=== PATIENT | female | born 1950 | race Caucasian/White ===

== ENCOUNTER 2019-02-09 11:00 | Inpatient (IN) | payer MEDICARE ==
--- NOTE | 2019-01-30 13:55 | HP ---
HISTORY AND PHYSICAL: DATE OF ADMISSION/SURGERY: 02/09/19 DATE OF OFFICE VISIT: 01/27/19 SURGEON: La Huitron MD* (dictated by MARIA ELENA Vogt). PROCEDURE: Right total knee arthroplasty. CHIEF COMPLAINT: Right knee pain. HISTORY OF PRESENT ILLNESS: Ms. Infante is a 68-year-old female with end-stage osteoarthritis of the right knee. She failed conservative treatment and elected to proceed with a right total knee arthroplasty. PAST MEDICAL HISTORY: RA, history of breast cancer, hypertension, COPD, high cholesterol, and diabetes. PAST SURGICAL HISTORY: Lumpectomy, right thumb nerve repair, and tonsillectomy. CURRENT MEDICATIONS: 1. Lisinopril 10 mg daily. 2. Lipitor 10 mg q.h.s. 3. Multivitamin. 4. Glucosamine and chondroitin. 5. Metformin 500 mg once a day. 6. Ibuprofen 600 mg twice a day. 7. Anastrozole 1 mg daily. 8. Vitamin D3. 9. Tylenol as needed. 10. Diltiazem 120 mg daily. 11. Calcium citrate. 12. Spiriva inhaler. 13. Hydroxychloroquine 200 mg 2 tabs twice a day. 14. Leucovorin calcium 5 mg weekly after methotrexate. 15. Methotrexate 2.5 mg 4 tabs once a week. 16. Sulfasalazine 500 mg twice a day. 17. Folic acid. ALLERGIES: To LEVAQUIN and TETRACYCLINE. FAMILY HISTORY: Diabetes, coronary artery disease, and RA. SOCIAL HISTORY: She is a 68-year-old female. She lives with her . She does not smoke or use drugs. REVIEW OF SYSTEMS: A complete 14-point review of systems was reviewed with the patient. It was positive for diabetes, COPD, and shortness of breath. She denies history of DVT, PE, hepatitis, HIV, or anesthesia problems. PHYSICAL EXAMINATION GENERAL: She is well developed, well nourished, in no acute distress. VITAL SIGNS: She stands 61 inches tall, weighs 195 pounds. Her blood pressure is 137/67, her heart rate is 68. HEENT: Normocephalic, atraumatic. NECK: Supple. No palpable lymph nodes. PULMONARY: Lungs are clear to auscultation bilaterally. CARDIO: Regular rate and rhythm. Strong S1, S2. ABDOMEN: Soft, nontender, and nondistended. NEUROLOGIC: She is alert and oriented x3. MUSCULOSKELETAL: Right lower extremity: Skin is intact. There are no open wounds or abrasions. There is a moderate effusion of the right knee joint. She has some tenderness over the medial and lateral joint line. Range of motion is 5 to 125 degrees of flexion. She has 2+ dorsalis pedis pulse and intact sensation. Her lower extremity muscle group strengths were intact at 5/ 5. ASSESSMENT AND PLAN: Ms. Infante is a 68-year-old female with end-stage osteoarthritis of the right knee. She has failed conservative treatment and elected to proceed with a right total knee arthroplasty. The surgery is scheduled for 02/09/[address] Huitron discussed the risks and benefits of the surgery at today's visit and all of her questions were answered. She will follow up with Dr. Huitron 2 weeks after the surgery. MARIA ELENA VOGT [id number]/[facility] #: [id number] ELVIN
[~2019-02-09 11:00] MED LIST: Buffered Lidocaine 1% SYRIN* 1 ML/SYRINGE INTRADERM ONE; Lactated Ringers 1000 ML Bag* 1,000 ML IV SCH; Tranexamic Acid 1,000 MG in NS 0.9% 50 ML* (outpatient use) IV SCH
[2019-02-09] MEDS ORDERED: Midazolam* 1 MG/ML 2 ML VIAL (2 MG) ONE (12:40)
[2019-02-09] MEDS ORDERED: fentaNYL* 50 MCG/ML 2 ML VIAL (100 MCG VIAL) ONE ×3 (12:40→18:46)
[2019-02-09] MEDS ORDERED: ceFAZolin 2 GM PREMIX in ORs 2 GM/50 ML BAG IVPB ONE (12:55)
[2019-02-09] MEDS ORDERED: ROPIVACAINE 5 MG/ML 30 ML BTL (0.5%) ONE (13:37)
[2019-02-09] MEDS ORDERED: Bupivacaine 0.5%* 50 ML VIAL ONE (13:46)
[2019-02-09] MEDS ORDERED: Acetaminophen TAB* 325 MG PO PRN (15:56)
[2019-02-09] MEDS ORDERED: Naloxone* 0.4 MG/ML 1 ML VIAL IV PRN (15:56)
[2019-02-09] MEDS ORDERED: Propofol* 10 MG/ML 20 ML BTL ONE (16:00)
[2019-02-09] MEDS ORDERED: Bupivacaine 0.5% SDV PF* 30ML VIAL ONE (16:01)
[2019-02-09] MEDS ORDERED: Bisacodyl SUPP* 10 MG SUPP PR PRN (16:53)
[2019-02-09] MEDS ORDERED: Magnesium Hydroxide LIQ* 30 ML UDC PO PRN (16:53)
[2019-02-09] MEDS ORDERED: Morphine INJ* 2 MG/ML 1 ML SYRINGE (TWO MG - NEW SYRINGE VERSION) IV PRN (16:53)
[2019-02-09] MEDS ORDERED: diPHENhydraMINE PO* 25 MG PO PRN (16:53)
[2019-02-09] MEDS ORDERED: traMADol TAB* 50 MG PO PRN (16:53)
[2019-02-09] MEDS ORDERED: diPHENhydraMINE IV* 50 MG/ML 1 ml VIAL (BENADRYL) IV PRN (16:53)
--- NOTE | 2019-02-09 17:08 | OP ---
Operative Report - Blank - Operative Report Date of Operation: 02/09/19 Note: JOSY REYES 1950 Date of Surgery: 02/09/19 La Huitron MD Policy Issue Clerk: Mitali ARREDONDO did help throughout the procedure with preparation of the knee, wound retraction, manipulation of the knee, and wound closure. Anesthesiologist: Dr. Watson Anesthesia Type: Spinal Preoperative Diagnosis: Right severe degenerative osteoarthritis of the knee Postoperative Diagnosis: As above Procedure Performed: Right Total Knee Arthroplasty Tourniquet time: 45 minutes Complications: None Specimen: Bone and cartilage from the right knee joint sent to pathology. Hardware Used: Cemented [employer]ell [employer]hew total knee hardware was used - For the femur a size 4 narrow right legion posterior stabilized femoral component, for the tibia a size 3 right jairo II tibial baseplate, for the insert a size 9 mm 3-4 posterior stabilized articular polyethylene insert, and for the patella a size 29 3-peg all poly patella. Brief History/Indication: JOSY REYES was known in clinic and had a history of severe right knee pain and swelling. She failed conservative treatment with anti-inflammatories, pain pills, intra-articular injections and physical therapy. She elected to undergo right total knee arthroplasty due to continued pain and decreased quality of life. Radiographs showed severe end stage osteoarthritis of the knee with bone on bone contact. Informed consent was obtained from the patient. She understood the risks of surgery included but were not limited to: bleeding, infection, damage to nearby structures, intraoperative fracture, nerve palsy, failure of the hardware, early loosening, knee stiffness or loss of motion, anesthesia complications, stroke, heart attack , blood clot and . She wished to proceed. Intra-Operative Findings: Intraoperatively the patient was noted to have severe loss of cartilage in all 3 compartments of the knee. Description of the Procedure: JOSY REYES was identified in the preanesthesia unit. Her right knee was marked as the correct operative side. Informed consent was signed and placed in the chart. The patient was taken to the operating room and placed under anesthesia without complication. A saxena catheter was placed. A tourniquet was placed on the right thigh. The right lower extremity was prepped and draped in the usual sterile fashion. Preoperative time-out was made to correctly identify the patient, side and site. Appropriate intraoperative antibiotics were given within one hour of incision. Tourniquet was inflated. A midline incision was made and carried sharply down to the extensor mechanism. A new 10 blade was used to make a standard medial parapatellar arthrotomy. The patella was subluxed laterally. Electrocautery was used to dissect soft tissue off the superomedial tibia to the midsagittal plane. The knee was flexed up. The anterior horn of the lateral meniscus and the ACL were sharply incised. A drill was used to enter the distal femur. The intramedullary distal femoral cutting guide was pinned on the distal femur. The oscillating saw was used to make the distal femoral cut. The external rotation guide was pinned on the distal femur and the distal femur was sized to a size 4. The size 4 multi-cutting jig was pinned on the distal femur. The oscillating saw was used to make the appropriate 4 chamfer cuts. Next the PCL was completely released. The extramedullary tibial cutting guide was pinned on the proximal tibia and the oscillating saw was used to make the proximal tibial cut perpendicular to the mechanical axis of the tibia. The bone was carefully removed. The knee was brought out into full extension. The spacer block was placed and had excellent fit with the knee in full extension. The medial and lateral ligaments were well balanced. The flexion and extension gaps were well balanced. The knee was flexed up. Lamina spreader box operator was placed both medially and laterally. Any remaining meniscus was removed with electrocautery. Curved osteotome was used to remove any posterior osteophytes. The tibial tray and drop bindu were placed and confirmed a satisfactory tibial cut. The size 4 right narrow femoral trial was impacted onto the distal femur. This trial had excellent fit and stability. The box for the posterior stabilized implant was prepared using a box cut osteotome and a reamer. Next a tibial tray trial and 9 mm insert trial was placed. The knee was taken through a range of motion and had full extension to 130 degrees of flexion. Patellofemoral tracking was satisfactory. The patella was inverted and sized to a size 29. Three peg holes were drilled through the size 29 drill guide. The trial patella was placed and the knee was taken through a range of motion. There was satisfactory patellofemoral tracking. All trials were removed. The tibia was subluxed anteriorly and sized to a size 3. The proximal tibial was prepared with a size 3 keel punch. All bony cut surfaces were irrigated with sterile saline and dried. Final implants were cemented into place starting with the tibia, followed by the femur, and last the patella. A 9 mm insert trial was placed and the knee was brought into full extension. Tourniquet was turned down and the knee was copiously irrigated with sterile saline. Electrocautery was used to obtain meticulous hemostasis. Once the cement had fully cured, the insert trial was removed. Any excess cement was removed from around the hardware and capsule. Final insert chosen was a 9 mm posterior stabilized Jairo II articular insert size 3-4. Stability of the insert was checked and noted to be stable. The extensor mechanism was closed using number 1 vicryls. The rest of the incision was closed in a layered fashion using 0 and 2-0 vicryls. The skin was closed using 3-0 nylon suture. Sterile xeroform, 4x4s and webril were used to cover the incision. Abner wrap and cold pack were used to cover the dressings. The patients anesthesia was reversed without difficulty. She was taken to the PACU in stable condition. Intended weight-bearing will be as tolerated.
[2019-02-09] MEDS ORDERED: oxyCODONE/Acetamin 5/325 MG* TAB PO PRN (17:09)
--- NOTE | 2019-02-09 17:33 | PN ---
Progress Note - Progress Note Date of Service: 02/09/19 Note: Patient seen in PACU POD 0 s/p RTK arthroplasty. Alert, Pain managed, +DF right ankle, sensation intact distal extremity.
[2019-02-09] MEDS ORDERED: oxyCODONE/Acetamin 5/325 MG* TAB ONE ×2 (17:35→19:29)
[2019-02-09] MEDS: oxyCODONE/Acetamin 5/325 MG* TAB PO PRN ×3 (17:36→22:35)
[2019-02-09] MEDS: fentaNYL* 50 MCG/ML 2 ML VIAL (100 MCG VIAL) IV PRN ×5 (17:43→19:21)
[2019-02-09] MEDS ORDERED: Ondansetron INJ* 2 MG/ML VIAL ONE (18:46)
[2019-02-09] MEDS: Ondansetron INJ* 2 MG/ML VIAL IV PRN (18:48)
[2019-02-09] MEDS ORDERED: Cyclobenzaprine TAB* 10 MG PO ONE (19:00)
[2019-02-09] MEDS: Cyclobenzaprine TAB* 10 MG PO PRN ×2 (19:04→23:52)
[2019-02-09] MEDS ORDERED: HYDROmorphone INJ1* 1 MG/ML SYRINGE ONE (19:29)
[2019-02-09] MEDS: HYDROmorphone INJ1* 1 MG/ML SYRINGE IV PRN ×2 (19:31→19:44)
[2019-02-09] MEDS: Lactated Ringers 1000 ML Bag* 1,000 ML IV SCH (20:10)
[2019-02-09] MEDS ORDERED: Lisinopril TAB* 10 MG PO SCH (21:00)
[2019-02-09] MEDS: oxyCODONE TAB* 5 MG TAB PO PRN (21:00)
[2019-02-09] MEDS: Magnesium Hydroxide LIQ* 30 ML UDC PO SCH (21:01)
[2019-02-09] MEDS ORDERED: Albuterol 2.5 MG/3 ML NEB.SOL* (0.083%) INH PRN (21:01)
[2019-02-09] MEDS: Docusate CAP* 100 MG PO SCH (21:01)
[2019-02-09] MEDS: SULFADIAZINE 500 MG PO SCH (21:02)
[2019-02-09] MEDS: Atorvastatin* 10 MG TAB PO SCH (21:02)
[2019-02-09] MEDS: Calcium Citrate TAB* 200 MG PO SCH (21:03)
[2019-02-09] MEDS: Hydroxychloroquine TAB* 200 MG PO SCH (21:03)
[2019-02-09] MEDS: Cholecalciferol TAB* 1000 UNITS PO SCH (21:03)
--- NOTE | 2019-02-09 23:24 | CONS ---
CC: Dr. Carmel Darling; Dr. La Huitron * CONSULTATION REPORT: DATE OF CONSULT: 02/09/19 PRIMARY CARE PROVIDER: Dr. Carmel Darling. MY ATTENDING WHILE IN THE HOSPITAL: Dr. Cornel Abarca. CONSULTING PROVIDER: Dr. La Huitron. REASON FOR CONSULT: Co-management of comorbid medical conditions. HISTORY OF PRESENT ILLNESS: Ms. Infante is a 68-year-old female with past medical history significant for seropositive rheumatoid arthritis, history of breast cancer, status post radiation, hypertension, COPD, and diabetes mellitus who failed outpatient therapy for right knee arthritis and they underwent right total knee arthroplasty without complications. At the time of evaluation today , she has pain 8/10 in her right knee with no radiation, no numbness or tingling. Full range of motion in her lower extremities. The patient denies chest pain, shortness of breath, or dizziness. The patient had 1 episode of vomiting associated with movement, but now feels better. The patient denies abdominal pain. The patient before coming to the hospital had no chest pain, shortness of breath, abdominal pain, diarrhea. The patient had preoperative bacteriuria which was treated with Keflex and had no symptoms at that time. The patient has not taken her methotrexate in 2 weeks nor her leucovorin. The patient denies recent fevers or chills. No recent sick contacts. No other recent changes in her medications. The patient did not take ibuprofen for 1 week. The patient did not take her lisinopril this morning. The patient took all of her other regularly scheduled medications this morning. The patient feels that after she stopped taking her methotrexate and her ibuprofen that her inflammatory arthritis symptoms have gotten worse including worsening morning stiffness and joint pain. PAST MEDICAL HISTORY: 1. Seropositive RA. 2. History of breast cancer, status post lumpectomy and radiation. 3. Hypertension. 4. COPD. 5. Hyperlipidemia. 6. Diabetes mellitus type 2. PAST SURGICAL HISTORY: 1. Lumpectomy in 2013. 2. Right thumb nerve repair. 3. Tonsillectomy. 4. Cataract surgery. 5. Right total knee arthroplasty. MEDICATIONS: 1. Lisinopril 10 mg p.o. daily. 2. Lipitor 10 mg p.o. daily. 3. Multivitamin 1 tab p.o. daily. 4. Glucosamine/chondroitin 1 tab p.o. daily. 5. Metformin 500 mg p.o. daily. 6. Ibuprofen 600 mg p.o. twice a day as needed. 7. Anastrozole 1 mg p.o. daily. 8. Vitamin D3 one tab p.o. daily. 9. Tylenol 325 mg p.o. q.4 hours as needed. 10. Diltiazem 120 mg p.o. daily. 11. Calcium citrate 1 tab p.o. daily. 12. Spiriva inhaler 2 puffs inhalation daily. 13. Hydroxychloroquine 400 mg p.o. b.i.d. 14. Leucovorin 5 mg p.o. weekly after methotrexate. 15. Methotrexate 10 mg p.o. weekly, last taken on 01/20/19. 16. Sulfasalazine 500 mg p.o. twice a day. 17. Folic acid 1 tab p.o. daily. ALLERGIES: LEVAQUIN and TETRACYCLINE. FAMILY HISTORY: The patient's mother of old age at age 96. The patient's father of heart disease at 73. The patient has had a grandmother who had diabetes and 2 aunts. SOCIAL HISTORY: The patient quit smoking in 2007. The patient drinks occasional alcohol very rarely. The patient used to work at [employer] and works approximately 2 to 3 hours a week. The patient's surrogate decision maker will be her , Koko Infante. PHYSICAL EXAM: General: The patient is a 68-year-old female who appears her stated age and sitting comfortably in the bed, in no acute distress. Vital Signs: At the time of evaluation, temperature 98.3, pulse rate 74, respiratory rate 18, oxygen saturation 95% on room air, blood pressure 154/67. HEENT: Head : Normocephalic, atraumatic. Sclerae anicteric. No conjunctival injection. Nasal mucosa moist. Oral mucosa moist. No pharyngeal erythema, discharge, or exudate. Neck: Supple, nontender. No lymphadenopathy. No carotid bruits auscultated. No JVD. Cardiac: Regular rate and rhythm. No clicks, murmurs, gallops, or rubs. Pulses are 2+ in the dorsalis pedis, posterior tibialis, and radial areas. Respiratory: Clear to auscultation bilaterally. No wheezes, rales, or rhonchi. Abdomen: Soft, nontender, and nondistended. Bowel sounds present and normoactive in all 4 quadrants. No hepatosplenomegaly. No abdominal bruits auscultated. No hepatojugular reflux. Genitourinary: No suprapubic or CVA tenderness. Skin: Right knee incision covered in bulky dressing. No other rashes. Suffers small macules on the right hand, which the patient states are chronic. DIAGNOSTIC STUDIES/LAB DATA: Preoperatively, white blood cell count 5.3, hemoglobin 12.7, platelet count 238. ESR 6. INR 0.78, PTT 28.9. Sodium 137, potassium 4.5, chloride 102, carbon dioxide 29, anion gap 6, BUN 29, creatinine 0.61, glucose 142, hemoglobin A1c of 5.7, calcium 10.0. Bilirubin 0.5, AST 17, ALT 21, alkaline phosphatase 97, protein 6.3, albumin 4.2, and globulin 2.1. TSH 1.3. Urine repeat shows yellow, clear, trace ketones, otherwise unremarkable. ASSESSMENT AND PLAN: Impression: Ms. Infante is a 68-year-old female with past medical history significant for rheumatoid arthritis, history of breast cancer, chronic obstructive pulmonary disease, and diabetes who is status post right total knee arthroplasty and is doing well except for moderate uncontrolled pain. 1. Postoperative state. Management per Orthopedics. The patient should have her hemoglobin and hematocrit trended. The patient should have pain control with opiates and muscle relaxants given the patient's inflammatory arthritis, which appears to have flared off her methotrexate. Resumption of ibuprofen when cleared by Surgery would be advised. The patient should have a bowel regimen and have her Rose removed as soon as possible. Engage in physical therapy and occupational therapy. 2. Rheumatoid arthritis. The patient will be continued on her home dose of Plaquenil and sulfasalazine. The patient is off her methotrexate and feels that her subjective symptoms of stiffness and pain have gotten worse. The patient as above should be restarted on her NSAIDs when able. 3. Chronic obstructive pulmonary disease. The patient will continue on Spiriva. The patient is not currently in exacerbation. The patient will have the albuterol nebulizer as needed. 4. Hypertension. The patient is currently normotensive, hold patient's lisinopril, resume when indicated for high blood pressure. Continue patient's diltiazem to avoid rebound tachycardia. 5. Diabetes mellitus type 2. Continue patient's metformin. The patient's blood sugar is very well controlled generally. 6. High cholesterol, continue patient's Lipitor. 7. FEN: The patient will have a regular unrestricted diet and fluids until she is able to take in adequate amount by mouth. 8. Code status: The patient would like to be a full code. 9. DVT prophylaxis with apixaban per Orthopedics. 10. Disposition per Orthopedics. TIME SPENT: Approximately 60 minutes was spent on this consultation, 30 of which was spent [id number] with the patient obtaining history and physical and discussing treatment plan. Plan was discussed with my attending, Dr. Cornel Abarca, and he is in agreement. Thank you very much for this consultation. I will continue to follow along with you. MARIA ELENA DILLON [id number]/[facility] #: [id number]
[2019-02-09] MEDS: Acetaminophen TAB* 325 MG PO SCH (23:29)
[2019-02-09] MEDS: ceFAZolin 1 GM ADVAN(*) 1 GM in NS 0.9% 50 ML* 50 ML IVPB SCH (23:32)
[2019-02-10] MEDS: oxyCODONE TAB* 5 MG TAB PO PRN ×3 (01:10→11:47)
[2019-02-10] MEDS: oxyCODONE/Acetamin 5/325 MG* TAB PO PRN ×4 (03:10→19:30)
[2019-02-10] MEDS: Acetaminophen TAB* 325 MG PO SCH ×3 (05:01→22:31)
[2019-02-10] MEDS: Lactated Ringers 1000 ML Bag* 1,000 ML IV SCH (06:12)
[2019-02-10 06:27] LABS: Hematocrit 35 % (35-47); Hemoglobin 11.5 g/dL (12.0-16.0); Mean Platelet Volume 8.7 fL (7.4-10.4); Platelet Count 221 10^3/uL (150-450)
[2019-02-10 06:53] LABS: BUN/Creatinine Ratio 17.9 (8-20); Calcium 9.4 mg/dL (8.6-10.3); EGFR African American 129.5 (>60); Potassium 4.3 mmol/L (3.5-5.0)
[2019-02-10] MEDS: Tiotropium CAP.INH* CAP.INH/18 MCG (USE ORDER SET !) INH SCH (07:25)
[2019-02-10] MEDS: ceFAZolin 1 GM ADVAN(*) 1 GM in NS 0.9% 50 ML* 50 ML IVPB SCH ×2 (08:28→15:29)
[2019-02-10] MEDS: Magnesium Hydroxide LIQ* 30 ML UDC PO SCH ×2 (08:29→22:37)
[2019-02-10] MEDS: Cholecalciferol TAB* 1000 UNITS PO SCH ×2 (08:30→22:38)
[2019-02-10] MEDS: Docusate CAP* 100 MG PO SCH ×2 (08:30→22:38)
[2019-02-10] MEDS: Apixaban* 2.5 MG TAB PO SCH ×2 (08:31→22:38)
[2019-02-10] MEDS: Folic Acid TAB* 1 MG PO SCH (08:31)
[2019-02-10] MEDS: Diltiazem CD CAP* 120 MG PO SCH (08:31)
[2019-02-10] MEDS: metFORMIN* 500 MG TAB PO SCH (08:32)
[2019-02-10] MEDS: Hydroxychloroquine TAB* 200 MG PO SCH ×2 (08:32→22:38)
[2019-02-10] MEDS: Prenatal Vitamin TAB PO SCH (08:32)
[2019-02-10] MEDS: Vitamin THERAPEUTIC TAB PO SCH (08:32)
[2019-02-10] MEDS: Calcium Citrate TAB* 200 MG PO SCH ×2 (08:33→22:38)
[2019-02-10] MEDS: SULFADIAZINE 500 MG PO SCH ×2 (08:33→22:37)
[2019-02-10] MEDS: CMCS: Anastrozole (NF) 1 MG TAB PO SCH (08:33)
--- NOTE | 2019-02-10 10:31 | PN ---
Progress Note - Progress Note Date of Service: 02/10/19 SOAP: Subjective: []Patient seen OOB in chair. Vomited last pm, mild nausea this am, pain at level 6. Denies SOB, CP, palpitations. Objective: [] Vital Signs Temp 97.8 F 02/10/19 07:48 Pulse 115 02/10/19 07:48 Resp 16 02/10/19 08:31 BP 118/97 02/10/19 07:48 Pulse Ox 99 02/10/19 08:30 Intake & Output 02/09/19 02/10/19 02/10/19 18:59 06:59 18:59 Intake Total 2200 4562 370 Output Total 1000 800 550 Balance 1200 3762 -180 Weight 194 lb Intake: IV Fluids 2200 1661 LR 2200 1661 IVPB 51 ABX - CEFAZOLIN 51 Oral 1350 370 Rose Irrigate Amount 1500 Output: Urine 300 Rose 1000 600 Emesis 200 250 Laboratory Results - last 24 hr 02/09/19 02/09/19 02/10/19 13:16 17:55 05:38 Hgb 11.5 L Hct 35 Plt Count 221 MPV 8.7 Sodium Potassium Chloride Carbon Dioxide Anion Gap BUN Creatinine Est GFR ( Amer) Est GFR (Non-Af Amer) BUN/Creatinine Ratio Glucose POC Glucose (mg/dL) 145 H 98 Calcium 02/10/19 05:38 Hgb Hct Plt Count MPV Sodium 137 Potassium 4.3 Chloride 99 L Carbon Dioxide 33 H Anion Gap 5 BUN 10 Creatinine 0.56 Est GFR ( Amer) 129.5 Est GFR (Non-Af Amer) 107.0 BUN/Creatinine Ratio 17.9 Glucose 148 H POC Glucose (mg/dL) Calcium 9.4 Right knee dressing dry and intact +DF right ankle calf NT sensation and circulation intact Assessment: []s/p Right total knee arthroplasty POD #1 Plan: []Will add scopolamine patch for nausea PT/OT as reinaldo WBAT Eliquis for DVT prophy Home when stable 1-2 days
[2019-02-10] MEDS ORDERED: Scopolamine 1.5 mg* PATCH TRANSDERM SCH (11:00)
--- NOTE | 2019-02-10 19:19 | PN ---
Subjective Date of Service: 02/10/19 Interval History: VS Lab She states she is sleepy. States her knee pain is 6/10, which is the lowest it has been. She has recently received percocet. She has been up walking with her walker around room. She denies SOB, n/v today. Rose removed this morning , has not urinated yet. Pt denies cough, fever/chills. Objective Active Medications: Acetaminophen (Tylenol Tab*) 975 mg PO Q8H WALKER Albuterol (Ventolin 2.5 Mg/3 Ml Neb.Aimee*) 2.5 mg INH Q4H PRN Anastrozole (Arimidex (Nf)) 1 mg PO QAM WALKER Apixaban (Eliquis*) 2.5 mg PO BID WALKER Atorvastatin Calcium (Lipitor*) 10 mg PO BEDTIME WALKER Bisacodyl (Dulcolax Supp*) 10 mg IA DAILY PRN Calcium Citrate (Citracal Tab*) 600 mg PO BID WALKER Cholecalciferol (Vitamin D Tab*) 2,000 units PO BID WALKER Cyclobenzaprine HCl (Flexeril Tab*) 10 mg PO TID PRN Diltiazem HCl (Cardizem Cd Cap*) 120 mg PO QAM WALKER; Protocol Diphenhydramine HCl (Benadryl Iv*) 25 mg IV Q6H PRN Diphenhydramine HCl (Benadryl Po*) 25 mg PO Q6H PRN Docusate Sodium (Colace Cap*) 100 mg PO BID WALKRE Folic Acid (Folvite Tab*) 1 mg PO QAM WALKER Hydroxychloroquine Sulfate (Plaquenil Tab*) 200 mg PO BID PENDING SALE TO [facility] Lactated Ringer's (Lactated Ringers 1000 Ml Bag*) 1,000 mls @ 100 mls/hr IV PER RATE WALKER Lactulose (Lactulose*) 30 ml PO Q6H PRN Magnesium Hydroxide (Milk Of Magnesia Liq*) 30 ml PO BID WALKER Magnesium Hydroxide (Milk Of Magnesia Liq*) 30 ml PO Q6H PRN Metformin HCl (Glucophage*) 500 mg PO QAM WALKER Morphine Sulfate (Morphine Inj (Syringe))*) 2 mg IV Q2H PRN Multivitamins ( Vitamin Tab*) 1 tab PO QAM WALKER Multivitamins (Theragran Tab*) 1 tab PO DAILY WALKER Ondansetron HCl (Zofran Inj*) 4 mg IV Q6H PRN Oxycodone HCl (Roxycodone Tab*) 10 mg PO Q4H PRN Oxycodone/Acetaminophen (Percocet 5/325 Tab*) 2 tab PO Q3H PRN Oxycodone/Acetaminophen (Percocet 5/325 Tab*) 1 tab PO Q3H PRN Pharmacy Profile Note (Scopolamine Patch Remove*) 1 note PATCH OFF Q72H WALKER Scopolamine (Transderm-Scop 1.5 Mg Patch*) 1 patch TRANSDERM Q72H WALKER Sulfasalazine (Sulfadiazine (Nf)) 500 mg PO BID WALKER; Protocol Tiotropium [place] (Spiriva Cap.Inh*) 2 cap INH QAM WALKER Tramadol HCl (Ultram*) 50 mg PO Q6H PRN Vital Signs: Temp Pulse Resp BP Pulse Ox 98.6 F 110 14 133/50 97 02/10/19 15:35 02/10/19 15:35 02/10/19 15:40 02/10/19 15:35 02/10/19 15:35 Oxygen Devices in Use Now: Nasal Cannula Appearance: Pt is laying in bed with HOB elevated. She is in no acute distress , but appears somewhat uncomfortable. Eyes: No Scleral Icterus, PERRLA Ears/Nose/Mouth/Throat: NL Teeth, Lips, Gums, Clear Oropharnyx, Mucous Membranes Moist Neck: NL Appearance and Movements; NL JVP, Trachea Midline Respiratory: Symmetrical Chest Expansion and Respiratory Effort, - - slight wheezing throughout Cardiovascular: NL Sounds; No Murmurs; No JVD, No Edema - Tachy Abdominal: NL Sounds; No Tenderness; No Distention, No Hepatosplenomegaly Lymphatic: No Auricular Adenopathy Extremities: No Edema, No Clubbing, Cyanosis, - - R post wrist with bruise, d/t previous IV. R knee with cry in place, dressing CDI. Pulses, sensation intact. Neurological: Alert and Oriented x 3 Result Diagrams: 02/10/19 05:38 02/10/19 05:38 Assess/Plan/Problems-Billing Assessment: 68 yof with PMHx seropositive RA, HTN, COPD, HLD, DM, h/o breast cancer who presents for elective LTKA. - Patient Problems (1) Failed total right knee replacement Comment: -Management per ortho team (2) Tachycardia Comment: -Likely that this is in the setting of pain, as pt c/o pain between 6-8 post- operatively; pt does not appear to have missed a dose of diltiazem. -EKG in a.m. -Continue to monitor (3) Rheumatoid arthritis Comment: -Restart methotrexate when able (4) Diabetes Current Visit: Yes Status: Acute Code(s): E11.9 - TYPE 2 DIABETES MELLITUS WITHOUT COMPLICATIONS SNOMED Code(s): 41372771 (5) Hypertension Comment: -Slight elevation -Restart lisinopril -Continue diltiazem (6) Hyperlipidemia Comment: -Continue lipitor (7) COPD (chronic obstructive pulmonary disease) Comment: -Slight wheezing throughout, but no new/worsening cough -Continue home medications and nebulizers (8) DVT prophylaxis Comment: -Stacy (9) Full code status
[2019-02-10] MEDS: Atorvastatin* 10 MG TAB PO SCH (22:39)
[2019-02-11] MEDS: Acetaminophen TAB* 325 MG PO SCH ×2 (05:02→14:23)
--- NOTE | 2019-02-11 08:08 | PN ---
Progress Note - Progress Note Date of Service: 02/11/19 SOAP: Subjective: Pt. feels good, pain well controlled. Objective: Vital Signs: Temp Pulse Resp BP Pulse Ox 98.7 F 115 16 136/56 97 02/11/19 03:36 02/11/19 03:36 02/11/19 03:36 02/11/19 03:36 02/11/19 03:36 RLE - dressing changed, inc c/d/i, mild bruising, distally nvi. Assessment: 68 yo F pod 2 s/p RTKA Plan: wbat pt/ot need medicine input on tachycardia- htn meds restarted.
[2019-02-11] MEDS: Vitamin THERAPEUTIC TAB PO SCH (08:16)
[2019-02-11] MEDS: Docusate CAP* 100 MG PO SCH (08:16)
[2019-02-11] MEDS: metFORMIN* 500 MG TAB PO SCH (08:17)
[2019-02-11] MEDS: Hydroxychloroquine TAB* 200 MG PO SCH (08:17)
[2019-02-11] MEDS: Apixaban* 2.5 MG TAB PO SCH (08:17)
[2019-02-11] MEDS: Diltiazem CD CAP* 120 MG PO SCH (08:17)
[2019-02-11] MEDS: oxyCODONE TAB* 5 MG TAB PO PRN ×2 (08:18→14:23)
[2019-02-11] MEDS: Prenatal Vitamin TAB PO SCH (08:18)
[2019-02-11] MEDS: Cholecalciferol TAB* 1000 UNITS PO SCH (08:18)
[2019-02-11] MEDS: Calcium Citrate TAB* 200 MG PO SCH (08:19)
[2019-02-11] MEDS: Folic Acid TAB* 1 MG PO SCH (08:19)
[2019-02-11] MEDS: Magnesium Hydroxide LIQ* 30 ML UDC PO SCH (08:19)
[2019-02-11] MEDS: SULFADIAZINE 500 MG PO SCH (08:19)
[2019-02-11] MEDS: CMCS: Anastrozole (NF) 1 MG TAB PO SCH (08:19)
[2019-02-11] MEDS: Tiotropium CAP.INH* CAP.INH/18 MCG (USE ORDER SET !) INH SCH (08:22)
--- NOTE | 2019-02-11 08:52 | PN ---
Subjective Date of Service: 02/11/19 Interval History: VS: Continued tachycardia, elevated BP overnight Lab: Pt continues to have tachycardia. EKG shows sinus tach, no evidence of AF. Pt denies CP, SOB, pain in calves. She states that HR is typically high in 90's. Pt denies abd pain, n/v/d/c. Pt had R knee pain rates 6/10. She has been up walking with PT. She is eating, drinking well. Objective Active Medications: Acetaminophen (Tylenol Tab*) 975 mg PO Q8H WALKER Albuterol (Ventolin 2.5 Mg/3 Ml Neb.Aimee*) 2.5 mg INH Q4H PRN Anastrozole (Arimidex (Nf)) 1 mg PO QAM WALKER Apixaban (Eliquis*) 2.5 mg PO BID WALKER Atorvastatin Calcium (Lipitor*) 10 mg PO BEDTIME WALKER Bisacodyl (Dulcolax Supp*) 10 mg [place] DAILY PRN Calcium Citrate (Citracal Tab*) 600 mg PO BID WALKER Cholecalciferol (Vitamin D Tab*) 2,000 units PO BID WALKER Cyclobenzaprine HCl (Flexeril Tab*) 10 mg PO TID PRN Diltiazem HCl (Cardizem Cd Cap*) 120 mg PO QAM WALKER; Protocol Diphenhydramine HCl (Benadryl Iv*) 25 mg IV Q6H PRN Diphenhydramine HCl (Benadryl Po*) 25 mg PO Q6H PRN Docusate Sodium (Colace Cap*) 100 mg PO BID WALKER Folic Acid (Folvite Tab*) 1 mg PO QAM WALKER Hydroxychloroquine Sulfate (Plaquenil Tab*) 200 mg PO BID WALKER Lactated Ringer's (Lactated Ringers 1000 Ml Bag*) 1,000 mls @ 100 mls/hr IV PER RATE WALKER Lactulose (Lactulose*) 30 ml PO Q6H PRN Lisinopril (Prinivil Tab*) 10 mg PO DAILY WALKER Magnesium Hydroxide (Milk Of Magnesia Liq*) 30 ml PO BID WALKER Magnesium Hydroxide (Milk Of Magnesia Liq*) 30 ml PO Q6H PRN Metformin HCl (Glucophage*) 500 mg PO QAM WALKER Morphine Sulfate (Morphine Inj (Syringe))*) 2 mg IV Q2H PRN Multivitamins ( Vitamin Tab*) 1 tab PO QAM WALKER Multivitamins (Theragran Tab*) 1 tab PO DAILY WALKER Ondansetron HCl (Zofran Inj*) 4 mg IV Q6H PRN Oxycodone HCl (Roxycodone Tab*) 10 mg PO Q4H PRN Oxycodone/Acetaminophen (Percocet 5/325 Tab*) 2 tab PO Q3H PRN Oxycodone/Acetaminophen (Percocet 5/325 Tab*) 1 tab PO Q3H PRN Pharmacy Profile Note (Scopolamine Patch Remove*) 1 note PATCH OFF Q72H WALKER Scopolamine (Transderm-Scop 1.5 Mg Patch*) 1 patch TRANSDERM Q72H WALKER Sulfasalazine (Sulfadiazine (Nf)) 500 mg PO BID WALKER; Protocol Tiotropium [place] (Spiriva Cap.Inh*) 2 cap INH QAM WALKER Tramadol HCl (Ultram*) 50 mg PO Q6H PRN Vital Signs: Temp Pulse Resp BP Pulse Ox 98.7 F 115 16 136/56 97 02/11/19 03:36 02/11/19 03:36 02/11/19 08:18 02/11/19 03:36 02/11/19 03:36 Oxygen Devices in Use Now: Nasal Cannula Appearance: Pt is sitting in chair with LE elevated. She appears well. She is in no acute distress. Eyes: No Scleral Icterus, PERRLA Ears/Nose/Mouth/Throat: NL Teeth, Lips, Gums, Clear Oropharnyx, Mucous Membranes Moist Neck: NL Appearance and Movements; NL JVP, Trachea Midline Respiratory: Symmetrical Chest Expansion and Respiratory Effort, Clear to Auscultation Cardiovascular: NL Sounds; No Murmurs; No JVD, No Edema - Tachycardic, regular rhythm Abdominal: NL Sounds; No Tenderness; No Distention, No Hepatosplenomegaly Extremities: No Edema, No Clubbing, Cyanosis, - - Cry to R knee; CDI dressing in place Neurological: Alert and Oriented x 3 Result Diagrams: 02/11/19 11:48 02/11/19 11:48 Assess/Plan/Problems-Billing Assessment: 68 yof with PMHx seropositive RA, HTN, COPD, HLD, DM, h/o breast cancer who presents for elective LTKA. - Patient Problems (1) Failed total right knee replacement Comment: -Management per ortho team (2) Tachycardia Comment: -Pt continues to have tachycardia. Pain is intermittent. Pt has h/o tachycardia. -EKG revealed sinus tachycardia, no signs of AF -CTA negative -Pt has baseline sinus elevated heart rate and is presenting with tachycardia in the setting of post-operative anemia and pain (3) Rheumatoid arthritis Comment: -Restart methotrexate when able (4) Diabetes Comment: -Continue Metformin (5) Hypertension Comment: -Elevation overnight -Continue diltiazem, lisinopril (6) Hyperlipidemia Comment: -Continue lipitor (7) COPD (chronic obstructive pulmonary disease) Comment: -Denies cough, SOB; CTAB on exam -Continue home medications and nebulizers (8) DVT prophylaxis Comment: -Stacy (9) Full code status Status and Disposition: Inpatient. Stable for discharge from medical standpoint.
[2019-02-11] MEDS ORDERED: Lisinopril TAB* 10 MG PO SCH (09:00)
[2019-02-11] MEDS ORDERED: Iodixanol* (CONTRAST) 320 MG/ML 100 ML SDV IV ONE (10:24)
[2019-02-11] MEDS ORDERED: Iodixanol* (CONTRAST) 320 MG/ML 100 ML SDV IV SCH (11:24)
[2019-02-11 12:03] LABS: Hematocrit 32 % (35-47); Hemoglobin 10.7 g/dL (12.0-16.0); Mean Corpuscular HGB Conc 33 g/dL (31-36); Mean Corpuscular Hemoglobin 31 pg (27-31); Mean Corpuscular Volume 92 fL (80-97); Mean Platelet Volume 8.6 fL (7.4-10.4); Platelet Count 214 10^3/uL (150-450); Red Cell Distribution Width 14 % (10.5-15); White Blood Count 10.3 10^3/uL (3.5-10.8)
[2019-02-11] MEDS: Ondansetron INJ* 2 MG/ML VIAL IV PRN (12:04)
[2019-02-11 12:19] LABS: BUN/Creatinine Ratio 17.2 (8-20); Calcium 9.8 mg/dL (8.6-10.3); EGFR African American 124.4 (>60); EGFR Non-African American 102.8 (>60); Potassium 3.8 mmol/L (3.5-5.0)
[2019-02-11 12:29] VITALS: BP 158/66
--- NOTE | 2019-02-11 15:21 | DS ---
Orthopedic Discharge Summary - Discharge Summary Date of Admission:02/09/19 Date of Discharge: 02/11/19 Date of Surgery: 02/09/19 Attending Orthopedic Provider: Dr. La Huitron Pre-operative Diagnosis: Severe end stage osteoarthritis left knee Operative Procedure: Left total knee arthroplasty Condition of Patient: Stable History: Priscila Infante is a 68 year old F with years of increasingly severe left knee pain. Patient has failed conservative management and has elected to undergo a left total knee replacement Hospital Course: Priscila was admitted to [facility] on 02/09/19. Patient underwent a left total knee arthroplasty without complication followed by a brief recovery in PACU and transfer to the Short Stay Surgical Unit in stable condition. Our hospitalist service, physical therapy and occupational therapy also participated in this patients care. Post-op day 1: Patient was alert and in no acute distress. Dressing was clean, dry and intact. Operative extremity dorsiflexion and plantarflexion intact, sensation intact to light touch distally, DP2+. Patient was tachycardic but had no complaints of chest pain, shortness of breath, dizziness or lightheadedness. Post-op day two: Dressing was changed, incision was clean, dry and intact. Patient continued to have tachycardia, but again was asymptomatic. CTA of the chest was negative for pulmonary embolism, EKG showed sinus tachycardia with no atrial fibrillation. Patient was deemed to be medically and orthopedically stable for discharge home. Physical therapy goals were met. Home Medications Medication Instructions Recorded Confirmed Type Diltiazem XR EXTEND Releas(NF) 120 mg PO QAM 10/27/12 01/27/19 History [Tiazac(see Cardizem CD)] Multivitamin [Multivitamins] 1 tab PO QAM 10/27/12 01/27/19 History Tiotropium CAP.INH* [Spiriva 2 cap INH QAM 10/27/12 01/27/19 History CAP.INH*] metFORMIN* [Glucophage 500 MG TAB 1 tab PO QAM 10/27/12 01/27/19 History *] Hydroxychloroquine TAB* [Plaquenil 200 mg PO BID 12/01/13 01/27/19 History TAB*] Cholecalciferol (Vitamin D3) 2,000 units PO BID 07/25/15 01/27/19 History [Vitamin D3] Anastrozole [Arimidex] 1 mg PO QAM 07/30/15 01/27/19 History Atorvastatin* [Lipitor 10 MG*] 10 mg PO BEDTIME 07/30/15 01/27/19 History Calcium Citrate TAB* [Citracal 600 mg PO BID 07/30/15 01/27/19 History TAB*] Folic Acid TAB* [Folvite TAB*] 1 mg PO QAM 07/30/15 01/27/19 History Leucovorin TAB* 5 mg PO WEEKLY 07/30/15 01/27/19 History Lisinopril TAB* [Prinivil TAB 10 10 mg PO BEDTIME 07/30/15 01/27/19 History MG*] Acetaminophen [Acetaminophen 8 2 mg PO BID 01/27/19 01/27/19 History Hour] Glucosam/Chond/Collagen/Hyalur 1 cap PO BID 01/27/19 01/27/19 History [Glucosamine Chondroitin Cap] Ibuprofen TAB* [Motrin TAB* 600 MG] 600 mg PO BID 01/27/19 01/27/19 History sulfaSALAzine [Azulfidine] 500 mg PO BID 01/27/19 01/27/19 History Apixaban* [Eliquis*] 2.5 mg PO BID tab 02/11/19 Rx Docusate CAP* [Colace Cap*] 100 mg PO BID cap 02/11/19 Rx oxyCODONE/Acetamin 5/325 MG* 1 tab PO Q3H PRN tab 02/11/19 Rx [Percocet 5/325 TAB*] oxyCODONE/Acetamin 5/325 MG* 2 tab PO Q3H PRN tab 02/11/19 Rx [Percocet 5/325 TAB*]
[2019-02-13] MEDS ORDERED: Scopolamine PATCH Remove* 1 NOTE MISC PATCH OFF SCH (11:00)
== END 2019-02-11 14:10 | disposition home health service (06) | DRG 470 ==
LOC: AA 12:24 → SSU 16:55
PROVIDERS: ADMIT Orthopaedic Surgery Adult Reconstructive Orthopaedic Surgery; ATTEND Orthopaedic Surgery Adult Reconstructive Orthopaedic Surgery
PROC: 0SRC0J9 Replacement of Right Knee Joint with Synthetic Substitute, Cemented, Open Approach (ICD-10-PCS; principal; 2019-02-09 15:15)
DX: M17.11 Unilateral primary osteoarthritis, right knee (principal); M06.9 Rheumatoid arthritis, unspecified; J44.9 Chronic obstructive pulmonary disease, unspecified; E11.9 Type 2 diabetes mellitus without complications; I10 Essential (primary) hypertension; E78.00 Pure hypercholesterolemia, unspecified; M25.461 Effusion, right knee; M25.761 Osteophyte, right knee; M40.46 Postural lordosis, lumbar region; M85.80 Other specified disorders of bone density and structure, unspecified site; E78.5 Hyperlipidemia, unspecified; E66.9 Obesity, unspecified; R11.0 Nausea; R00.0 Tachycardia, unspecified; Z68.36 Body mass index [BMI] 36.0-36.9, adult; Z88.1 Allergy status to other antibiotic agents; Z85.3 Personal history of malignant neoplasm of breast; Z83.3 Family history of diabetes mellitus; Z82.49 Family history of ischemic heart disease and other diseases of the circulatory system; Z82.61 Family history of arthritis; Z98.49 Cataract extraction status, unspecified eye; Z79.84 Long term (current) use of oral hypoglycemic drugs; Z79.01 Long term (current) use of anticoagulants
CPT/HCPCS: 36415; 71275; 80048; 85014; 85018; 85027; 85049; 93005; A9270-GY; G8978-GP-CJ; G8978-GP-CK; G8979-GP-CH; G8980-GP-CJ; J0690; J1170; J2250; J2270; J2405; J2704; J2795; J3010; J3490; Q9967

== ENCOUNTER 2020-02-16 07:30 | Inpatient (IN) ==
[2020-02-16] MEDS ORDERED: Senna TAB 8.6 mg TAB PO PRN (11:43)
[2020-02-16] MEDS: Enoxaparin 40 MG/0.4 ML SYR SUBCUT SCH (21:44)
[2020-02-17] MEDS: Enoxaparin 40 MG/0.4 ML SYR SUBCUT SCH ×2 (08:27→21:46)
[2020-02-17] MEDS: Insulin GLARGINE 100 un/ml 10 ml VIAL SUBCUT SCH (08:27)
[2020-02-17] MEDS ORDERED: Enoxaparin 40 MG/0.4 ML SYR SUBCUT SCH (09:00)
[2020-02-18] MEDS: Insulin GLARGINE 100 un/ml 10 ml VIAL SUBCUT SCH (08:31)
[2020-02-18] MEDS: Enoxaparin 40 MG/0.4 ML SYR SUBCUT SCH ×2 (08:35→21:56)
[2020-02-19 05:27] LABS: ABS Eosinophils 0.2 10^3/ul (0-0.6); ABS Lymphocytes 1.2 10^3/ul (1.0-4.8); ABS Monocytes 0.7 10^3/ul (0-0.8); Eosinophil % 2.8 %; Hematocrit 30 % (35-47); Hemoglobin 9.9 g/dL (12.0-16.0); Lymphocyte % 19.8 %; Mean Corpuscular HGB Conc 33 g/dL (31-36); Mean Corpuscular Hemoglobin 30 pg (27-31); Mean Corpuscular Volume 90 fL (80-97); Mean Platelet Volume 9.3 fL (7.4-10.4); Platelet Count 183 10^3/uL (150-450); Red Blood Count 3.34 10^6 /uL (3.70-4.87); Red Cell Distribution Width 15 % (10-15); White Blood Count 6.1 10^3/uL (3.5-10.8)
[2020-02-19 07:47] LABS: Albumin 3.1 g/dL (3.2-5.2); Albumin/Globulin Ratio 1.3 (1-3); BUN/Creatinine Ratio 19.4 (8-20); Calcium 9.3 mg/dL (8.6-10.3); EGFR Non-African American 177.7 (>60); Globulin 2.4 g/dL (2-4); Potassium 3.4 mmol/L (3.5-5.0); Total Bilirubin 0.3 mg/dL (0.2-1.0); Total Protein 5.5 g/dL (6.4-8.9)
[2020-02-19] MEDS: Insulin GLARGINE 100 un/ml 10 ml VIAL SUBCUT SCH (09:05)
[2020-02-19] MEDS: Enoxaparin 40 MG/0.4 ML SYR SUBCUT SCH ×2 (09:06→19:52)
[2020-02-19] MEDS: Potassium Chlor 10 meq TAB PO SCH (19:48)
[2020-02-20] MEDS: Enoxaparin 40 MG/0.4 ML SYR SUBCUT SCH ×2 (09:30→21:00)
[2020-02-20] MEDS: Insulin GLARGINE 100 un/ml 10 ml VIAL SUBCUT SCH (09:31)
[2020-02-20] MEDS: Potassium Chlor 10 meq TAB PO SCH ×2 (09:31→20:58)
[2020-02-21] MEDS: Enoxaparin 40 MG/0.4 ML SYR SUBCUT SCH ×2 (08:28→20:20)
[2020-02-21] MEDS: Potassium Chlor 10 meq TAB PO SCH ×2 (08:29→20:21)
[2020-02-21] MEDS: Insulin GLARGINE 100 un/ml 10 ml VIAL SUBCUT SCH (09:17)
[2020-02-21 16:48] LABS: Urine Appearance Clear; Urine Bilirubin Negative (Negative); Urine Blood 1+ (Negative); Urine Color Yellow; Urine Glucose Negative (Negative); Urine Ketones Negative (Negative); Urine Nitrite Negative (Negative); Urine Protein Negative (Negative); Urine Specific Gravity 1.004 (1.010-1.030); Urine Urobilinogen Negative (Negative)
[2020-02-21 16:51] LABS: Urine Bacteria Absent (Absent); Urine Red Blood Cell 3+(>10/hpf) (Absent); Urine Squamous Epithelial Cell Present (Absent); Urine White Blood Cell Trace(0-5/hpf) (Absent)
[2020-02-22] MEDS: Insulin GLARGINE 100 un/ml 10 ml VIAL SUBCUT SCH (09:22)
[2020-02-22] MEDS: Enoxaparin 40 MG/0.4 ML SYR SUBCUT SCH ×2 (09:29→20:13)
[2020-02-23] MEDS: Enoxaparin 40 MG/0.4 ML SYR SUBCUT SCH (08:18)
[2020-02-24] MEDS: Enoxaparin 40 MG/0.4 ML SYR SUBCUT SCH (08:38)
[2020-02-25] MEDS: Enoxaparin 40 MG/0.4 ML SYR SUBCUT SCH (08:24)
[2020-02-26 05:16] LABS: ABS Eosinophils 0.2 10^3/ul (0-0.6); ABS Lymphocytes 1.1 10^3/ul (1.0-4.8); ABS Monocytes 0.5 10^3/ul (0-0.8); ABS Neutrophils 2.6 10^3/ul (1.5-7.7); Eosinophil % 4.7 %; Hematocrit 31 % (35-47); Hemoglobin 10.4 g/dL (12.0-16.0); Mean Corpuscular HGB Conc 33 g/dL (31-36); Mean Corpuscular Hemoglobin 30 pg (27-31); Mean Corpuscular Volume 91 fL (80-97); Mean Platelet Volume 8.4 fL (7.4-10.4); Platelet Count 236 10^3/uL (150-450); Red Blood Count 3.44 10^6 /uL (3.70-4.87); Red Cell Distribution Width 16 % (10-15); White Blood Count 4.4 10^3/uL (3.5-10.8)
[2020-02-26 05:35] LABS: Albumin 3.2 g/dL (3.2-5.2); Albumin/Globulin Ratio 1.4 (1-3); BUN/Creatinine Ratio 15.4 (8-20); Calcium 9.6 mg/dL (8.6-10.3); Globulin 2.3 g/dL (2-4); Total Bilirubin 0.3 mg/dL (0.2-1.0); Total Protein 5.5 g/dL (6.4-8.9)
[2020-02-26] MEDS: Enoxaparin 40 MG/0.4 ML SYR SUBCUT SCH (11:22)
[2020-02-27] MEDS: Enoxaparin 40 MG/0.4 ML SYR SUBCUT SCH (09:10)
[2020-02-28] MEDS: Enoxaparin 40 MG/0.4 ML SYR SUBCUT SCH (10:35)
[2020-02-29] MEDS: Enoxaparin 40 MG/0.4 ML SYR SUBCUT SCH (07:39)
[2020-03-01] MEDS: Enoxaparin 40 MG/0.4 ML SYR SUBCUT SCH (08:06)
[2020-03-02] MEDS: Enoxaparin 40 MG/0.4 ML SYR SUBCUT SCH (08:15)
[2020-03-03] MEDS: Enoxaparin 40 MG/0.4 ML SYR SUBCUT SCH (08:19)
[2020-03-04 05:12] LABS: ABS Basophils 0.1 10^3/ul (0-0.2); ABS Eosinophils 0.1 10^3/ul (0-0.6); ABS Lymphocytes 1.2 10^3/ul (1.0-4.8); ABS Monocytes 0.5 10^3/ul (0-0.8); ABS Neutrophils 2.7 10^3/ul (1.5-7.7); Eosinophil % 2.1 %; Hematocrit 33 % (35-47); Hemoglobin 10.8 g/dL (12.0-16.0); Lymphocyte % 26.5 %; Mean Corpuscular HGB Conc 33 g/dL (31-36); Mean Corpuscular Hemoglobin 30 pg (27-31); Mean Corpuscular Volume 91 fL (80-97); Mean Platelet Volume 8.1 fL (7.4-10.4); Platelet Count 228 10^3/uL (150-450); Red Cell Distribution Width 16 % (10-15); White Blood Count 4.7 10^3/uL (3.5-10.8)
[2020-03-04 05:31] LABS: Albumin 3.4 g/dL (3.2-5.2); Albumin/Globulin Ratio 1.5 (1-3); BUN/Creatinine Ratio 14.6 (8-20); Calcium 9.5 mg/dL (8.6-10.3); EGFR Non-African American 152.9 (>60); Globulin 2.3 g/dL (2-4); Potassium 3.8 mmol/L (3.5-5.0); Total Bilirubin 0.3 mg/dL (0.2-1.0); Total Protein 5.7 g/dL (6.4-8.9)
[2020-03-04] MEDS: Enoxaparin 40 MG/0.4 ML SYR SUBCUT SCH (07:58)
[2020-03-05] MEDS: Enoxaparin 40 MG/0.4 ML SYR SUBCUT SCH (09:22)
[2020-03-06] MEDS: Enoxaparin 40 MG/0.4 ML SYR SUBCUT SCH (08:06)
[2020-03-07 06:58] VITALS: BP 143/60
[2020-03-07] MEDS: Enoxaparin 40 MG/0.4 ML SYR SUBCUT SCH (09:09)
== END 2020-03-07 14:00 | disposition home health service (06) | DRG 91 ==
LOC: PMRU 10:11
PROVIDERS: ADMIT Physical Medicine & Rehabilitation; ATTEND Physical Medicine & Rehabilitation

== ENCOUNTER 2024-03-29 08:07 | Inpatient (IN) ==
[2024-03-29 09:48] LABS: Hematocrit 39.6 % (35-45); Mean Corpuscular Hemoglobin 31.2 pg (27-33); Mean Corpuscular Hgb Conc 32.8 g/dL (31-36); Mean Corpuscular Volume 95.1 fL (80-97); Platelet Count 314 10^3/uL (150-450); Red Blood Count 4.16 10^6/uL (3.63-4.92); Red Cell Distribution Width 14.6 % (12-17); White Blood Count 16.8 10^3/uL (3.8-11.8)
[2024-03-29 09:57] LABS: Budding Yeast Present /HPF (Absent); Urine Appearance Clear; Urine Bacteria 1+ /HPF (Absent); Urine Bilirubin Negative (Negative); Urine Blood Negative (Negative); Urine Color Light-Yellow; Urine Glucose 4+ (>=1000 mg/dL) (Negative); Urine Ketones 2+ (Negative); Urine Nitrite Negative (Negative); Urine Protein 1+ (>=30 mg/dL) (Negative); Urine Red Blood Cell 1+(3-5/hpf) /HPF (0-Trace); Urine Squamous Epithelial Cell Present /HPF (Absent); Urine Urobilinogen Negative (Negative); Urine White Blood Cell Trace(0-5/hpf) /HPF (0-Trace)
[2024-03-29 10:13] LABS: High Sens Troponin Baseline 8 pg/mL (<15)
[2024-03-29 10:25] LABS: ALT 27 U/L (7-52); Albumin 4.8 g/dL (3.2-5.2); Albumin/Globulin Ratio 1.8 (1-3); Alkaline Phosphatase 77 U/L (35-149); Anion Gap 4 mmol/L (2-16); Blood Urea Nitrogen 25 mg/dL (6-24); C Reactive Protein 43.86 mg/L (<8.01); CO2 Carbon Dioxide 28 mmol/L (22-32); Calcium 10.8 mg/dL (8.6-10.3); Chloride 103 mmol/L (101-111); Creatinine, Serum 0.58 mg/dL (0.51-0.95); Globulin 2.6 g/dL (2-4); Glucose 187 mg/dL (70-100); Lipase 12 U/L (11.0-82.0); Sodium 135 mmol/L (135-145); Total Bilirubin 0.7 mg/dL (0.2-1.0); Total Protein 7.4 g/dL (6.4-8.9); eGFR CKD-EPI 94.3 (>60)
[2024-03-29 10:29] LABS: ABS Lymphocytes 0.6 10^3/uL (1.0-4.8); ABS Neutrophils 15.2 10^3/uL (1.5-7.6); ABS Nucleated RBC 0.01 10^3/ul; Eosinophil % 0.1 %; Lymphocyte % 3.4 %
[2024-03-29] MEDS: Morphine 10 MG/ML VIAL (1 ml) IV ONE (10:46)
[2024-03-29] MEDS: Acetaminophen IV 1 GM/100ML 1,000 MG/100 ML BAG IV ONE (10:46)
[2024-03-29] MEDS: Iodixanol (CONTRAST) 320 MG/ML 100 ML SDV IV ONE (11:24)
[2024-03-29] MEDS: Ondansetron 4 mg VIAL 2 MG/ML 2 ml VIAL IV ONE (11:49)
[2024-03-29] MEDS: fentaNYL 100 mcg/2 ml 50 MCG/ML VIAL IV SLOW PU ONE (11:49)
[2024-03-29 12:23] LABS: Potassium Redraw 4.7 mmol/L (3.5-5.0)
[2024-03-29] MEDS: Lactated Ringers 1000 ml BAG 1,000 ML IV ONE (13:40)
[2024-03-29] MEDS ORDERED: Polyethylene Glycol 3350 17 GM PACKET PO PRN (15:43)
[2024-03-29] MEDS: Piperacillin/Tazobac 3.375 BAG 3.375 GM/100 ML BAG IV ONE (16:13)
[2024-03-29] MEDS ORDERED: Dextrose 50% Syringe 50 ml 25 GM/50 ML SYRINGE IV PUSH PRN (16:48)
[2024-03-29] MEDS ORDERED: Piperacillin/Tazobac 3.375 BAG 3.375 GM/100 ML BAG IV ONE (17:05)
[2024-03-29] MEDS: Acetaminophen IV 1 GM/100ML 1,000 MG/100 ML BAG IV SCH (17:48)
[2024-03-29] MEDS: Enoxaparin 40 MG/0.4 ML SYR SUBCUT SCH (17:56)
[2024-03-29] MEDS ORDERED: Zosyn per Pharmacy NOTE FOLLOW UP SCH (18:00)
[2024-03-29] MEDS: SPIRIVA Respimat (tiotropium) 2.5 mcg/inh Inhaler INH SCH (18:46)
[2024-03-29] MEDS: Ondansetron 4 mg VIAL 2 MG/ML 2 ml VIAL IV PRN (19:28)
[2024-03-29] MEDS: ZOSYN 3.375 GM Q8H per EXTENDED INFUSION IV SCH (20:27)
[2024-03-30] MEDS: Lactated Ringers 1000 ml BAG 1,000 ML IV SCH (01:10)
[2024-03-30 06:19] LABS: Hemoglobin 12.4 g/dL (11.5-14.3); Mean Corpuscular Hemoglobin 30.9 pg (27-33); Mean Corpuscular Hgb Conc 32.6 g/dL (31-36); Mean Corpuscular Volume 94.9 fL (80-97); Mean Platelet Volume 9.3 fL (7.5-11.2); Platelet Count 282 10^3/uL (150-450); Red Cell Distribution Width 14.5 % (12-17); White Blood Count 22.4 10^3/uL (3.8-11.8)
[2024-03-30 06:32] LABS: Calcium 9.5 mg/dL (8.6-10.3); Creatinine, Serum 0.6 mg/dL (0.51-0.95); Magnesium 1.9 mg/dL (1.9-2.7); Potassium 3.7 mmol/L (3.5-5.0); eGFR CKD-EPI 93.5 (>60)
[2024-03-30 07:16] LABS: ABS Lymphocytes 0.6 10^3/uL (1.0-4.8); ABS Monocytes 2.1 10^3/uL (0.0-0.9); ABS Neutrophils 19.7 10^3/uL (1.5-7.6); Lymphocyte % 2.6 %
[2024-03-30] MEDS: NS 0.9% 1000 ml BAG 1,000 ML IV SCH (21:40)
[2024-03-31 06:50] LABS: Hematocrit 36.4 % (35-45); Hemoglobin 11.9 g/dL (11.5-14.3); Mean Corpuscular Hemoglobin 31.2 pg (27-33); Mean Corpuscular Hgb Conc 32.6 g/dL (31-36); Mean Corpuscular Volume 95.8 fL (80-97); Mean Platelet Volume 9.1 fL (7.5-11.2); Platelet Count 290 10^3/uL (150-450); Red Cell Distribution Width 14.7 % (12-17); White Blood Count 20.1 10^3/uL (3.8-11.8)
[2024-03-31 07:03] LABS: ABS Monocytes 2.3 10^3/uL (0.0-0.9); ABS Neutrophils 16.8 10^3/uL (1.5-7.6); ABS Nucleated RBC 0.01 10^3/ul; Lymphocyte % 4.9 %
[2024-03-31] MEDS ORDERED: Sevoflurane BOTTLE ONE ×2 (07:49→07:51)
[2024-03-31] MEDS ORDERED: Lidocaine 2% PF 5 ML VIAL ONE (07:49)
[2024-03-31] MEDS ORDERED: fentaNYL 250 mcg/5 ml 50 MCG/ML 5 ml VIAL (250 MCG) ONE (07:53)
[2024-03-31] MEDS ORDERED: Rocuronium 50 mg VIAL 10 mg/ml 5 ml VIAL (50 mg) ONE (07:53)
[2024-03-31] MEDS ORDERED: Glycopyrrolate IV 0.2 MG/ML 1 ML VIAL ONE (07:53)
[2024-03-31] MEDS ORDERED: Propofol 10 MG/ML 20 ML BTL ONE (07:53)
[2024-03-31] MEDS ORDERED: Midazolam 2 mg/2 ml VIAL 1 mg/ml 2 ml VIAL (2 mg) ONE (07:54)
[2024-03-31] MEDS ORDERED: Bupivacaine 0.25% SDV 30 ML ONE (08:21)
[2024-03-31 08:42] LABS: Calcium 9.1 mg/dL (8.6-10.3); Potassium 3.4 mmol/L (3.5-5.0)
[2024-03-31 09:02] LABS: Creatinine, Serum 0.42 mg/dL (0.51-0.95); eGFR CKD-EPI 101.9 (>60)
[2024-03-31] MEDS ORDERED: Dexamethasone IV 4 MG/ML VIAL 1 ml VIAL ONE (09:02)
[2024-03-31] MEDS ORDERED: Ondansetron 4 mg VIAL 2 MG/ML 2 ml VIAL ONE (09:02)
[2024-03-31] MEDS ORDERED: Metoprolol Tartrate 5 mg VIAL 5 ml VIAL (1 mg/ml) ONE (09:07)
[2024-03-31] MEDS ORDERED: Phenylephrine 40 mcg/mL 10mL (400mcg) SYRINGE ONE (09:23)
[2024-03-31] MEDS ORDERED: Acetaminophen IV 1 GM/100ML 1,000 MG/100 ML BAG IV ONE (09:24)
[2024-03-31] MEDS ORDERED: fentaNYL 100 mcg/2 ml 50 MCG/ML VIAL IV PRN (10:48)
[2024-03-31] MEDS ORDERED: Ondansetron 4 mg VIAL 2 MG/ML 2 ml VIAL IV PRN (10:48)
[2024-03-31] MEDS: Senna TAB 8.6 mg TAB PO PRN (20:59)
[2024-04-01 10:33] LABS: ABS Lymphocytes 0.9 10^3/uL (1.0-4.8); ABS Monocytes 1.4 10^3/uL (0.0-0.9); ABS Neutrophils 13.5 10^3/uL (1.5-7.6); Hematocrit 35.8 % (35-45); Hemoglobin 11.4 g/dL (11.5-14.3); Lymphocyte % 5.6 %; Mean Corpuscular Hemoglobin 30.9 pg (27-33); Mean Corpuscular Hgb Conc 31.9 g/dL (31-36); Mean Corpuscular Volume 96.7 fL (80-97); Mean Platelet Volume 8.5 fL (7.5-11.2); Platelet Count 345 10^3/uL (150-450); Red Blood Count 3.71 10^6/uL (3.63-4.92); Red Cell Distribution Width 14.8 % (12-17); White Blood Count 15.8 10^3/uL (3.8-11.8)
[2024-04-01 11:12] LABS: Anion Gap 16 mmol/L (2-16); Blood Urea Nitrogen 38 mg/dL (6-24); CO2 Carbon Dioxide 17 mmol/L (22-32); Calcium 8.4 mg/dL (8.6-10.3); Chloride 99 mmol/L (101-111); Creatinine, Serum 0.47 mg/dL (0.51-0.95); Glucose 127 mg/dL (70-100); Sodium 132 mmol/L (135-145); eGFR CKD-EPI 99.2 (>60)
[2024-04-01] MEDS: Enoxaparin 40 MG/0.4 ML SYR SUBCUT SCH (12:34)
[2024-04-02] MEDS: Calcium Carb (TUMS) 500 mg CHEW TAB PO PRN (01:57)
[2024-04-02 06:25] LABS: ABS Lymphocytes 1.1 10^3/uL (1.0-4.8); ABS Monocytes 1.4 10^3/uL (0.0-0.9); ABS Neutrophils 10.7 10^3/uL (1.5-7.6); ABS Nucleated RBC 0.01 10^3/ul; Hematocrit 34.1 % (35-45); Hemoglobin 11.2 g/dL (11.5-14.3); Lymphocyte % 8.2 %; Mean Corpuscular Hemoglobin 31.3 pg (27-33); Mean Corpuscular Hgb Conc 32.8 g/dL (31-36); Mean Corpuscular Volume 95.4 fL (80-97); Mean Platelet Volume 8.9 fL (7.5-11.2); Nucleated Red Blood Cells % 0.1 %/100WBC (0.0-0.8); Platelet Count 347 10^3/uL (150-450); Red Blood Count 3.57 10^6/uL (3.63-4.92); Red Cell Distribution Width 14.9 % (12-17); White Blood Count 13.2 10^3/uL (3.8-11.8)
[2024-04-02 06:41] LABS: Calcium 8.6 mg/dL (8.6-10.3); Creatinine, Serum 0.38 mg/dL (0.51-0.95); Magnesium 2.1 mg/dL (1.9-2.7); Potassium 3.7 mmol/L (3.5-5.0); eGFR CKD-EPI 104.4 (>60)
[2024-04-02] MEDS: Amoxicillin/Clavul 875/125 TAB (Augmentin 875 tab) PO SCH (20:16)
[2024-04-03 07:13] LABS: ABS Eosinophils 0.1 10^3/uL (0.0-0.5); ABS Lymphocytes 1.3 10^3/uL (1.0-4.8); ABS Monocytes 1.2 10^3/uL (0.0-0.9); ABS Neutrophils 8.3 10^3/uL (1.5-7.6); Eosinophil % 0.5 %; Hematocrit 33.8 % (35-45); Hemoglobin 11.2 g/dL (11.5-14.3); Lymphocyte % 11.9 %; Mean Corpuscular Hemoglobin 31.3 pg (27-33); Mean Corpuscular Hgb Conc 33.2 g/dL (31-36); Mean Corpuscular Volume 94.3 fL (80-97); Platelet Count 360 10^3/uL (150-450); Red Blood Count 3.59 10^6/uL (3.63-4.92); Red Cell Distribution Width 14.8 % (12-17); White Blood Count 10.8 10^3/uL (3.8-11.8)
[2024-04-03 07:51] LABS: Calcium 8.8 mg/dL (8.6-10.3); Creatinine, Serum 0.35 mg/dL (0.51-0.95); Magnesium 2.1 mg/dL (1.9-2.7); Potassium 3.8 mmol/L (3.5-5.0); eGFR CKD-EPI 106.5 (>60)
[2024-04-03 09:56] VITALS: BP 143/61
== END 2024-04-03 13:45 | disposition home or self-care (01) | DRG 854 ==
LOC: ED 08:07 → EDHOLD 15:43 → SSU 17:16
PROVIDERS: ADMIT Student in an Organized Health Care Education/Training Program; ATTEND Student in an Organized Health Care Education/Training Program